=== PATIENT | male | born 1950 | race Caucasian/White ===

== ENCOUNTER 2023-10-19 10:25 | Inpatient (IN) | payer MEDICARE, MEDICAID ==
[~2023-10-19] VITALS: Ht 177.8 cm; Wt 72.7 kg
[2023-10-19] MEDS ORDERED: normal saline 1000ML IV soln IVB ONE (11:05)
[2023-10-19 11:48] LABS: BASOPHILS # (AUTO) 0.1 X10'3 (0-0.2); BASOPHILS % (AUTO) 0.9 % (0-1); EOSINOPHILS # (AUTO) 0.1 X10'3 (0-0.9); HEMATOCRIT 38.2 % (42.0-52.0); HEMOGLOBIN 12.9 g/dl (14.0-17.9); LYMPHOCYTES # (AUTO) 2.2 X10'3 (1.1-4.8); LYMPHOCYTES % (AUTO) 30.6 % (21-51); MEAN CORPUSCULAR HEMOGLOBIN 32.6 PG (27.0-31.0); MEAN CORPUSCULAR HGB CONC 33.8 g/dL (33.0-36.5); MEAN CORPUSCULAR VOLUME 96.6 FL (78-98); MEAN PLATELET VOLUME 6.6 FL (7.4-10.4); MONOCYTES # (AUTO) 0.4 X10'3 (0-0.9); MONOCYTES % (AUTO) 5.8 % (2-12); NEUTROPHILS # (AUTO) 4.4 X10'3 (1.8-7.7); NEUTROPHILS % (AUTO) 61.7 % (42-75); PLATELET COUNT 143 X10'3 (140-440); RED BLOOD COUNT 3.95 X10'6 (4.70-6.10); RED CELL DISTRIBUTION WIDTH 13.7 % (11.5-14.5); WHITE BLOOD COUNT 7.2 X10'3 (4.5-11.0)
[2023-10-19 12:02] LABS: APTT 29 SECONDS (22-32); INR 1.1 INR; PROTHROMBIN TIME 11.5 SECONDS (9.0-12.0)
[2023-10-19 12:07] LABS: ALANINE AMINOTRANSFERASE 18 U/L (12-78); ALBUMIN 3.5 G/DL (3.4-5.0); ALBUMIN/GLOBULIN RATIO 0.9 (1.1-1.5); ALKALINE PHOSPHATASE 142 IU/L (46-116); ANION GAP 14 (8-16); ASPARTATE AMINO TRANSFERASE 25 U/L (10-37); BILIRUBIN,TOTAL 0.4 MG/DL (0.1-1.0); BLOOD UREA NITROGEN 9 MG/DL (7-18); BUN/CREATININE RATIO 10.8 (10.0-20.0); CALCIUM 8.3 MG/DL (8.5-10.1); CHLORIDE 103 MMOL/L (99-107); CREATININE 0.83 MG/DL (0.60-1.10); GLUCOSE 174 MG/DL (70-104); POTASSIUM 3.4 MMOL/L (3.5-5.1); SODIUM 144 MMOL/L (135-145); TOTAL CARBON DIOXIDE 27.2 MMOL/L (24-32); TOTAL PROTEIN 7.6 G/DL (6.4-8.2); eCRCL 80 ML/MIN; eGFR > 90 ML/MIN
[2023-10-19 12:10] LABS: LIPASE 38 U/L (16-77)
[2023-10-19 12:12] LABS: ETHANOL 357 MG/DL (<10)
[2023-10-19 12:21] LABS: BILIRUBIN,URINE NEGATIVE (Neg); CLARITY,URINE CLEAR (Clear); COLOR,URINE YELLOW (Yellow); GLUCOSE, URINE NEGATIVE (Neg); KETONES,URINE NEGATIVE (Neg); LEUKOCYTE ESTERASE ,URINE NEGATIVE (Neg); NITRITES, URINE NEGATIVE (Neg); OCCULT BLOOD,URINE NEGATIVE (Neg); PROTEIN,URINE NEGATIVE (Neg); UROBILINOGEN,URINE 0.2 E.U/dL (0.2-1.0)
[2023-10-19 12:23] LABS: UA COLLECTION TYPE URINAL
[2023-10-19 12:35] LABS: URINE AMPHETAMINE SCREEN NEGATIVE (Neg); URINE BARBITUATE SCREEN NEGATIVE (Neg); URINE BENZODIAZEPINES SCREEN POSITIVE (Neg); URINE CANNABINOID SCREEN NEGATIVE (Neg); URINE COCAINE SCREEN NEGATIVE (Neg); URINE METHADONE SCREEN NEGATIVE (Neg); URINE OPIATE SCREEN NEGATIVE (Neg); URINE PHENCYCLIDINE SCREEN NEGATIVE (Neg)
[2023-10-19] MEDS ORDERED: D5-1/2NS w/20 mEq potassium per 1000ml IV ONE (12:45)
[2023-10-19] MEDS ORDERED: magnesium 2GM in 50ml NS 50 ML IV ONE (12:45)
[2023-10-19] MEDS ORDERED: DEXTROSE 15 GM of carb/4 tabs (each vial/BOTTLE has 4 tablets) PO PRN ×2 (12:55)
[2023-10-19] MEDS ORDERED: HYDROcodone/acetaminophen 5mg/325mg tablet PO PRN (12:55)
[2023-10-19] MEDS ORDERED: magnesium hydroxide 30ml (MOM) UD suspension PO PRN (12:55)
[2023-10-19] MEDS ORDERED: magnesium Cl slow-release 64mg tablet PO PRN (12:55)
[2023-10-19] MEDS ORDERED: mag hydrox/Alum hydrox/simeth 30ml oral suspension PO PRN (12:55)
[2023-10-19] MEDS ORDERED: magnesium 2GM in 50ml NS 50 ML IV PRN (12:55)
[2023-10-19] MEDS ORDERED: MESSAGE TO PHARMACY PO ONE (12:55)
[2023-10-19] MEDS ORDERED: potassium Cl 40MEQ/1/2NS 520ml 520 ML IV PRN (12:55)
[2023-10-19] MEDS ORDERED: ondansetron/PF 4mg/2ml inj IV PRN (12:55)
[2023-10-19] MEDS ORDERED: acetaminophen 325mg tablet PO PRN (12:55)
[2023-10-19] MEDS ORDERED: glucagon, human recombinant 1mg kit SUBCUT PRN (12:55)
[2023-10-19] MEDS ORDERED: potassium Cl 20 mEq SR tablet PO PRN (12:55)
[2023-10-19] MEDS ORDERED: magnesium 4gm in 100ml NS 100 ML IV PRN (12:55)
[2023-10-19] MEDS ORDERED: insulin Lispro (HumaLOG) vial - multi-dose SQ SCH (12:55)
[2023-10-19] MEDS ORDERED: dextrose 50%-water 50ml dispensing syringe IV PRN ×2 (12:55)
[2023-10-19 13:30] LABS: HEMOGLOBIN A1C 6.1 % (4.5-6.2)
[2023-10-19] MEDS: K and/or MAG REPLACEMENT MC SCH (19:58)
[2023-10-19] MEDS: docusate sod 100mg capsule PO SCH (20:13)
[2023-10-19 21:51] VITALS: BP 130/68; PULSE 104; RESP 16; TEMP 98.4; O2SAT 97
[2023-10-19] MEDS: HYDROcodone/acetaminophen 10/325mg tab PO PRN (22:13)
[2023-10-19] MEDS: insulin glargine (Lantus) pen - multi-dose SQ SCH (22:16)
[2023-10-19 23:00] VITALS: RESP 16
[2023-10-19] MEDS ORDERED: haloperidol 5mg tablet PO PRN (23:00)
[2023-10-19] MEDS ORDERED: haloperidol lactate 5mg/ml inj IM PRN (23:00)
[2023-10-20 01:11] LABS: ALANINE AMINOTRANSFERASE 17 U/L (12-78); ALBUMIN 3.1 G/DL (3.4-5.0); ALKALINE PHOSPHATASE 123 IU/L (46-116); AMYLASE 53 U/L (25-115); ANION GAP 10 (8-16); ASPARTATE AMINO TRANSFERASE 21 U/L (10-37); BILIRUBIN,TOTAL 0.4 MG/DL (0.1-1.0); BLOOD UREA NITROGEN 9 MG/DL (7-18); BUN/CREATININE RATIO 14.8 (10.0-20.0); CALCIUM 7.9 MG/DL (8.5-10.1); CHLORIDE 103 MMOL/L (99-107); CREATININE 0.61 MG/DL (0.60-1.10); GLUCOSE 95 MG/DL (70-104); LIPASE 40 U/L (16-77); PHOSPHORUS 2.5 MG/DL (2.3-4.5); POTASSIUM 3.3 MMOL/L (3.5-5.1); SODIUM 138 MMOL/L (135-145); TOTAL CARBON DIOXIDE 24.6 MMOL/L (24-32); TOTAL PROTEIN 6.3 G/DL (6.4-8.2); eCRCL 109 ML/MIN; eGFR > 90 ML/MIN
[2023-10-20] MEDS: LORazepam 1 MG tablet PO PRN (01:39)
[2023-10-20 06:00] VITALS: BP 152/86; PULSE 94; RESP 18; TEMP 97.6; O2SAT 97
[2023-10-20 06:11] LABS: BASOPHILS # (AUTO) 0.1 X10'3 (0-0.2); BASOPHILS % (AUTO) 1.1 % (0-1); EOSINOPHILS # (AUTO) 0.1 X10'3 (0-0.9); EOSINOPHILS % (AUTO) 2.5 % (0-6); HEMATOCRIT 34.1 % (42.0-52.0); HEMOGLOBIN 11.5 g/dl (14.0-17.9); LYMPHOCYTES # (AUTO) 2.1 X10'3 (1.1-4.8); LYMPHOCYTES % (AUTO) 38.9 % (21-51); MEAN CORPUSCULAR HEMOGLOBIN 32.8 PG (27.0-31.0); MEAN CORPUSCULAR HGB CONC 33.9 g/dL (33.0-36.5); MEAN CORPUSCULAR VOLUME 96.6 FL (78-98); MEAN PLATELET VOLUME 6.9 FL (7.4-10.4); MONOCYTES # (AUTO) 0.5 X10'3 (0-0.9); MONOCYTES % (AUTO) 8.6 % (2-12); NEUTROPHILS # (AUTO) 2.6 X10'3 (1.8-7.7); NEUTROPHILS % (AUTO) 48.9 % (42-75); PLATELET COUNT 110 X10'3 (140-440); RED BLOOD COUNT 3.53 X10'6 (4.70-6.10); RED CELL DISTRIBUTION WIDTH 13.8 % (11.5-14.5); WHITE BLOOD COUNT 5.4 X10'3 (4.5-11.0)
[2023-10-20 06:23] LABS: PROTHROMBIN TIME 11.1 SECONDS (9.0-12.0)
[2023-10-20] MEDS: K and/or MAG REPLACEMENT MC SCH ×2 (08:00→20:39)
[2023-10-20 10:00] VITALS: BP 137/71; PULSE 87; RESP 14; TEMP 98; O2SAT 99
[2023-10-20] MEDS: pantoprazole 40mg Tablet.DR PO SCH (10:33)
[2023-10-20] MEDS: thiamine 100mg/ml 2ml inj. IV SCH ×3 (10:33→22:59)
[2023-10-20] MEDS: docusate sod 100mg capsule PO SCH ×2 (10:33→19:56)
[2023-10-20] MEDS: folic acid 1mg/0.2ml inj IV SCH (10:35)
[2023-10-20] MEDS: HYDROcodone/acetaminophen 10/325mg tab PO PRN ×2 (10:39→20:02)
[2023-10-20] MEDS ORDERED: polyvinyl alcohol ophthalmic drops 15ml bottle EACHEYE PRN (11:25)
[2023-10-20] MEDS: enoxaparin 40mg/0.4ml syringe SUBCUT SCH (12:09)
[2023-10-20 12:17] LABS: MAGNESIUM 1.9 MG/DL (1.5-2.4); POTASSIUM 3.3 MMOL/L (3.5-5.1)
[2023-10-20] MEDS: potassium Cl 20 mEq SR tablet PO PRN ×3 (14:10→23:08)
[2023-10-20 18:00] VITALS: BP 153/44; PULSE 78; RESP 16; TEMP 97.7; O2SAT 90
[2023-10-20] MEDS: insulin glargine (Lantus) pen - multi-dose SQ SCH (21:00)
[2023-10-20 22:00] VITALS: BP 154/76; PULSE 77; RESP 16; TEMP 97.9; O2SAT 96
[2023-10-21] MEDS: LORazepam 1 MG tablet PO PRN (01:53)
[2023-10-21 06:30] VITALS: BP 146/100; PULSE 81; RESP 16; TEMP 97.9; O2SAT 96
[2023-10-21 07:24] LABS: BASOPHILS % (AUTO) 1.2 % (0-1); EOSINOPHILS # (AUTO) 0.2 X10'3 (0-0.9); HEMOGLOBIN 11.9 g/dl (14.0-17.9); LYMPHOCYTES # (AUTO) 1.5 X10'3 (1.1-4.8); LYMPHOCYTES % (AUTO) 37.8 % (21-51); MEAN CORPUSCULAR HEMOGLOBIN 32.8 PG (27.0-31.0); MEAN CORPUSCULAR VOLUME 96.5 FL (78-98); MEAN PLATELET VOLUME 6.9 FL (7.4-10.4); MONOCYTES # (AUTO) 0.4 X10'3 (0-0.9); MONOCYTES % (AUTO) 10.2 % (2-12); NEUTROPHILS # (AUTO) 1.9 X10'3 (1.8-7.7); NEUTROPHILS % (AUTO) 46.8 % (42-75); PLATELET COUNT 106 X10'3 (140-440); RED BLOOD COUNT 3.62 X10'6 (4.70-6.10); RED CELL DISTRIBUTION WIDTH 14.1 % (11.5-14.5)
[2023-10-21 07:40] LABS: PROTHROMBIN TIME 11.2 SECONDS (9.0-12.0)
[2023-10-21 07:54] LABS: ALANINE AMINOTRANSFERASE 14 U/L (12-78); ALBUMIN 3.1 G/DL (3.4-5.0); ALBUMIN/GLOBULIN RATIO 0.9 (1.1-1.5); ALKALINE PHOSPHATASE 126 IU/L (46-116); AMYLASE 41 U/L (25-115); ANION GAP 11 (8-16); ASPARTATE AMINO TRANSFERASE 20 U/L (10-37); BILIRUBIN,TOTAL 0.9 MG/DL (0.1-1.0); BLOOD UREA NITROGEN 9 MG/DL (7-18); BUN/CREATININE RATIO 13.2 (10.0-20.0); CALCIUM 8.3 MG/DL (8.5-10.1); CHLORIDE 103 MMOL/L (99-107); CREATININE 0.68 MG/DL (0.60-1.10); GLUCOSE 132 MG/DL (70-104); LIPASE 23 U/L (16-77); MAGNESIUM 1.4 MG/DL (1.5-2.4); PHOSPHORUS 3.2 MG/DL (2.3-4.5); POTASSIUM 3.9 MMOL/L (3.5-5.1); SODIUM 139 MMOL/L (135-145); TOTAL CARBON DIOXIDE 25.3 MMOL/L (24-32); TOTAL PROTEIN 6.5 G/DL (6.4-8.2); eCRCL 98 ML/MIN; eGFR > 90 ML/MIN
[2023-10-21] MEDS: enoxaparin 40mg/0.4ml syringe SUBCUT SCH (08:00)
[2023-10-21] MEDS: thiamine 100mg/ml 2ml inj. IV SCH ×2 (08:03→13:00)
[2023-10-21] MEDS: pantoprazole 40mg Tablet.DR PO SCH (08:03)
[2023-10-21] MEDS: docusate sod 100mg capsule PO SCH (08:03)
[2023-10-21 08:05] VITALS: RESP 16
[2023-10-21] MEDS: K and/or MAG REPLACEMENT MC SCH (08:09)
[2023-10-21] MEDS: folic acid 1mg/0.2ml inj IV SCH (10:17)
[2023-10-21 11:43] VITALS: BP 134/70; PULSE 83; RESP 16; TEMP 97.5; O2SAT 100
[2023-10-21] MEDS ORDERED: LORazepam 2 mg/ml vial IV PRN (23:00)
[2023-10-23] MEDS ORDERED: LORazepam 2 mg/ml vial IV PRN (23:00)
[2023-10-23] MEDS ORDERED: LORazepam 1 MG tablet PO PRN (23:00)
[2023-10-24] MEDS ORDERED: thiamine 100mg tablet PO SCH (08:00)
[2023-10-24] MEDS ORDERED: folic acid 1mg tablet PO SCH (08:00)
== END 2023-10-21 14:00 | disposition left against medical advice (07) | DRG 640 ==
LOC: ER 10:26 → ED HOLD 13:01 → EDBEDREQ 21:01 → ORTHO 4S 21:49
PROVIDERS: ADMIT Internal Medicine; ATTEND Internal Medicine
DX: E83.42 Hypomagnesemia (principal); I62.00 Nontraumatic subdural hemorrhage, unspecified; E87.6 Hypokalemia; F10.129 Alcohol abuse with intoxication, unspecified; E11.65 Type 2 diabetes mellitus with hyperglycemia; Z53.29 Procedure and treatment not carried out because of patient's decision for other reasons; Z88.5 Allergy status to narcotic agent; M25.511 Pain in right shoulder
CPT/HCPCS: 36415; 70450; 70551; 71045; 73030; 80053; 80305; 80320; 81003; 82150; 82948; 83036; 83690; 83735; 84100; 84132; 84484; 85025; 85610; 85730; 87081; 97161; 99285; G0378; J1650; J1815; J3411; J3475; J3480; J3490; J7030